=== PATIENT | male | born 1985 | race Caucasian/White ===

== ENCOUNTER 2023-12-04 10:04 | Outpatient (AMB) | payer OTHER, SELFPAY ==
--- NOTE | 2023-12-04 10:37 | AM.OFFWIN_ITS ---
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 Denies shortness of breath or GI symptoms. 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 Has been using over the counter cold/flu medication for the last week without relief. FOR[facility]LY [facility], [facility] Social History Patient Tobacco Use Status: Never used Tobacco Review of Systems Const All systems reviewed & are unremarkable except as noted in HPI and below Physical Exam Vital Signs: Last Vital Signs Pulse 66 12/04/23 10:38 BP 118/76 12/04/23 10:38 Pulse Ox 97 12/04/23 10:38 Oxygen Delivery Method Room Air 12/04/23 10:38 Const General: cooperative and ill appearing acutely HEENT Head: Yes normal to inspection Ears: hearing grossly normal bilaterally, external ears normal and TM abnormal (b/l TMs mildly erythematous) General nose exam: Normal external nose present and Normal nasal mucous membranes and turbinates present Face and sinus: Yes sinus tenderness (frontal/maxillary) Mouth: Normal oral and palatal mucosa present Throat: Yes posterior oropharynx abnormal (mild erythema) Neck Neck: Yes no lymphadenopathy Resp Effort & Inspection: normal respiratory effort and Actively coughing Quality: productive Auscultation: clear to auscultation bilaterally Cardio Jugular venous distension: no JVD Palpation: normal PMI Rate: regular rate Rhythm: regular rhythm Skin General skin exam: no rashes or lesions noted Extrem General: Yes capillary refill normal and Yes no clubbing, cyanosis or edema Psych Appearance: grossly normal Mental Status: mental status grossly normal Speech and movement: Normal speech and movement present Assessment & Plan Assessment & Plan (1) Acute sinusitis: Code(s): J01.90 - Acute sinusitis, unspecified Qualifiers: Sinusitis location: maxillary Recurrence: non-recurrent Qualified Code(s): J01.00 - Acute maxillary sinusitis, unspecified Plan: Patient has failed conservative measures x >1week so I will start them on a short course of antibiotics, particularly given that bilateral OM is beginning to develop. Reviewed indications, use, possible s/e of medication. Patient may continue to use otc cold/flu medication for symptomatic relief. If patient does not improve with treatment, they should return to clinic or see PCP for further evaluation. Patient verbalizes understanding and agrees to plan. (2) Bilateral acute otitis media: Code(s): H66.93 - Otitis media, unspecified, bilateral Plan: As above. Medications: New azithromycin For 250 mg dose pack: take 500 mg today (day 1), then 250 mg for 4 days (days 2-5) PO 6 tabs 0RF J01.90 - Acute sinusitis, unspecified Coding Level of Care Code Est Pt Level 3 (56642) Diagnoses Acute non-recurrent maxillary sinusitis J01.00 Sinusitis location: maxillary Recurrence: non-recurrent Bilateral acute otitis media H66.93
[2023-12-04 10:38] VITALS: BP 118/76; PULSE 66; O2SAT 97
== END 2023-12-04 11:03 | disposition home or self-care (01) ==
PROVIDERS: Visit Provider Nurse Practitioner Family
DX: J01.00 Acute maxillary sinusitis, unspecified (principal); H66.93 Otitis media, unspecified, bilateral
CPT/HCPCS: 99213